=== PATIENT | male | born 1955 | race Caucasian/White ===

== ENCOUNTER 2019-03-12 09:36 | Inpatient (IN) ==
[2019-03-12 11:50] LABS: Basophils # 0.1 10*3/uL (0.0-0.2); Basophils % 0.8 % (0.0-0.8); Eosinophils % 0.6 % (0.00-10.9); Immature Granulocytes % 0.3 %; Immature Granulocytes Absolute 0.02 #; Lymphocytes # 2.5 10*3/uL (1.4-4.0); Lymphocytes % 34.9 % (21.2-54.2); Mean Corpuscular HGB Conc 32.6 GM/DL (32-36); Mean Platelet Volume 9.7 FL (9.6-12.0); Monocytes % 9.3 % (1.7-12.7); Neutrophils % 54.1 % (38.7-73.9); Platelet Count 252 T/CUMM (130-400); Red Blood Count 5.17 MC/CUMM (3.8-5.5); Red Cell Distribution Width 14.2 % (9.3-17.3); White Blood Count 7.1 T/CUMM (4-12)
[2019-03-12 12:00] LABS: INR 0.9; PT Patient Result 10.3 SECS (9.6-12.2); Partial Thromboplastin Time 27.8 SECS (20.8-36.0)
[2019-03-12 12:18] LABS: Amorphous Crystals,Urine Occasional /HPF (Few); Apearance,Urine CLEAR (Clear); Bilirubin,Urine Negative (Negative); Blood, Urine Negative (Negative); Glucose,Urine (UA) Negative (Negative); Ketones,Urine Negative (Negative); Mucus,Urine Occasional /LPF (Occasional); Nitrite,Urine Negative (Negative); Protein,Urine Negative; Urine Color Straw (Yellow); Urine Specific Gravity 1.003 (1.001-1.035); Urine Urobilinogen < 2.0 EU/DL (0.2-1.0)
[2019-03-12 12:20] LABS: Barbiturates Screen,Urine Negative (Negative); Benzodiazepines Screen,Urine Negative (Negative); Cannabinoid Screen,Urine Negative (Negative); Opiate Screen,Urine Negative (Negative); Phencyclidine Screen,Urine Negative (Negative)
[2019-03-12 12:28] LABS: Alanine Aminotransferase 24 U/L (16-61); Albumin 3.5 G/DL (3.4-5.0); Alkaline Phosphatase 101 U/L (45-117); Aspartate Amino Transferase 22 U/L (0-37); Blood Urea Nitrogen 12 MG/DL (7-18); Calcium 9.4 MG/DL (8.5-10.1); Glucose 94 MG/DL (74-106); Osmolality,Calculated 278.4 MOS/KG (273-304); Total Protein 7.8 G/DL (6.4-8.3); Troponin I < 0.015 NG/ML (0.00-0.045)
[2019-03-12] MEDS ORDERED: ACETAMINOPHEN 325 MG TABLET PO PRN (13:54)
[2019-03-12] MEDS ORDERED: ENOXAPARIN 40 MG/0.4 ML SYRINGE SUBCUT SCH (14:00)
[2019-03-12 16:38] LABS: Risk Ratio 8.79; Thyroid Stimulating Hormone 0.701 uIU/ml (0.358-3.74); VLDL CHOLESTEROL 47.6 MG/DL
[2019-03-12] MEDS: NICOTINE 21 MG/24 HR PATCH TRANSDERM PRN (17:31)
[2019-03-12] MEDS: ASPIRIN CHEW 81 MG TABLET PO SCH (17:31)
[2019-03-12] MEDS: ENOXAPARIN 40 MG/0.4 ML SYRINGE SUBCUT SCH (21:02)
[2019-03-12] MEDS: ATORVASTATIN 80 MG TABLET PO SCH (21:03)
[2019-03-13 05:38] LABS: Basophils # 0.1 10*3/uL (0.0-0.2); Eosinophils # 0.2 10*3/uL (0.0-0.87); Eosinophils % 2.9 % (0.00-10.9); Hematocrit 43.6 VOL% (42.0-52.0); Hemoglobin 14.5 GM/DL (14.0-18.0); Immature Granulocytes % 0.2 %; Immature Granulocytes Absolute 0.01 #; Lymphocytes # 2.7 10*3/uL (1.4-4.0); Lymphocytes % 42.3 % (21.2-54.2); Mean Corpuscular HGB Conc 33.3 GM/DL (32-36); Mean Corpuscular Volume 87.9 FL (87-102); Mean Platelet Volume 10.4 FL (9.6-12.0); Monocytes % 9.9 % (1.7-12.7); Neutrophils % 43.7 % (38.7-73.9); Platelet Count 245 T/CUMM (130-400); Red Blood Count 4.96 MC/CUMM (3.8-5.5); Red Cell Distribution Width 13.9 % (9.3-17.3); White Blood Count 6.3 T/CUMM (4-12)
[2019-03-13 06:11] LABS: Albumin 3.2 G/DL (3.4-5.0); Bilirubin,Total 0.6 MG/DL (0.2-1.0); Calcium 9.2 MG/DL (8.5-10.1); Osmolality,Calculated 277.5 MOS/KG (273-304); Total Protein 7.2 G/DL (6.4-8.3)
[2019-03-13 06:19] LABS: Risk Ratio 9.33; VLDL CHOLESTEROL 64.6 MG/DL
[2019-03-13] MEDS: ASPIRIN CHEW 81 MG TABLET PO SCH (09:09)
[2019-03-13] MEDS: PANTOPRAZOLE 40 MG TABLET PO SCH (09:09)
[2019-03-13] MEDS: NICOTINE 21 MG/24 HR PATCH TRANSDERM PRN (09:10)
[2019-03-13] MEDS: amLODIPine 2.5 MG TABLET PO SCH (21:11)
[2019-03-13] MEDS: ATORVASTATIN 80 MG TABLET PO SCH (21:11)
[2019-03-13] MEDS: ENOXAPARIN 40 MG/0.4 ML SYRINGE SUBCUT SCH (21:20)
[2019-03-14 04:55] LABS: Basophils # 0.1 10*3/uL (0.0-0.2); Basophils % 0.9 % (0.0-0.8); Eosinophils # 0.2 10*3/uL (0.0-0.87); Eosinophils % 2.5 % (0.00-10.9); Hematocrit 45.1 VOL% (42.0-52.0); Hemoglobin 14.7 GM/DL (14.0-18.0); Immature Granulocytes % 0.9 %; Immature Granulocytes Absolute 0.06 #; Lymphocytes # 2.7 10*3/uL (1.4-4.0); Lymphocytes % 38.7 % (21.2-54.2); Mean Corpuscular HGB Conc 32.6 GM/DL (32-36); Mean Corpuscular Volume 88.4 FL (87-102); Mean Platelet Volume 10.1 FL (9.6-12.0); Monocytes % 10.7 % (1.7-12.7); Neutrophils % 46.3 % (38.7-73.9); Platelet Count 237 T/CUMM (130-400); Red Cell Distribution Width 13.7 % (9.3-17.3); White Blood Count 6.9 T/CUMM (4-12)
[2019-03-14 05:35] LABS: Osmolality,Calculated 276.5 MOS/KG (273-304)
[2019-03-14] MEDS: PANTOPRAZOLE 40 MG TABLET PO SCH (10:18)
[2019-03-14] MEDS: LORATADINE 10 MG TABLET PO SCH (10:18)
[2019-03-14] MEDS: ASPIRIN CHEW 81 MG TABLET PO SCH (10:18)
[2019-03-14] MEDS: NICOTINE 21 MG/24 HR PATCH TRANSDERM PRN (10:24)
[2019-03-14] MEDS: ATORVASTATIN 80 MG TABLET PO SCH (21:48)
[2019-03-14] MEDS: amLODIPine 2.5 MG TABLET PO SCH (21:48)
[2019-03-14] MEDS: ENOXAPARIN 40 MG/0.4 ML SYRINGE SUBCUT SCH (21:51)
[2019-03-15 05:37] LABS: Basophils # 0.1 10*3/uL (0.0-0.2); Basophils % 1.2 % (0.0-0.8); Eosinophils # 0.2 10*3/uL (0.0-0.87); Eosinophils % 2.6 % (0.00-10.9); Hematocrit 44.1 VOL% (42.0-52.0); Hemoglobin 14.9 GM/DL (14.0-18.0); Immature Granulocytes % 0.3 %; Immature Granulocytes Absolute 0.02 #; Lymphocytes # 3.2 10*3/uL (1.4-4.0); Lymphocytes % 49.2 % (21.2-54.2); Mean Corpuscular HGB Conc 33.8 GM/DL (32-36); Mean Corpuscular Volume 88.4 FL (87-102); Mean Platelet Volume 10.2 FL (9.6-12.0); Monocytes % 10.2 % (1.7-12.7); Neutrophils % 36.5 % (38.7-73.9); Platelet Count 232 T/CUMM (130-400); Red Blood Count 4.99 MC/CUMM (3.8-5.5); Red Cell Distribution Width 13.8 % (9.3-17.3); White Blood Count 6.5 T/CUMM (4-12)
[2019-03-15] MEDS ORDERED: FAMOTIDINE 20 MG TABLET PO ONE (06:00)
[2019-03-15 06:05] LABS: Eosinophils 1 % (0-10); Hypochromasia Slight; Lymphocytes 52 % (20-55); Metamyelocytes 1 %; Platelet Estimate Normal; Segmented Neutrophils 34 % (50-85); Total Cells Counted 100
[2019-03-15 06:06] LABS: Calcium 9.1 MG/DL (8.5-10.1); Osmolality,Calculated 282.1 MOS/KG (273-304)
[2019-03-15] MEDS ORDERED: LIDOCAINE 1% 20 ML VIAL ONE (07:40)
[2019-03-15] MEDS ORDERED: HEPARIN 5,000 UNIT/1 ML VIAL ONE (07:40)
[2019-03-15] MEDS ORDERED: ROPIVACAINE 0.5% 30 ML VIAL ONE (07:53)
[2019-03-15] MEDS ORDERED: DEXAMETHASONE 4 MG/1 ML VIAL ONE (07:53)
[2019-03-15] MEDS ORDERED: MIDAZOLAM 2 MG/2 ML VIAL ONE (07:54)
[2019-03-15] MEDS ORDERED: fentaNYL 100 MCG/2 ML VIAL ONE (07:54)
[2019-03-15] MEDS ORDERED: ceFAZolin 1,000 MG in SYRINGE 1 EACH IV ONE (08:00)
[2019-03-15] MEDS ORDERED: LACTATED RINGERS 1,000 ML IV SCH (09:00)
[2019-03-15] MEDS ORDERED: DEXTROSE 50% 25 GM/50 ML VIAL IV PRN (10:10)
[2019-03-15] MEDS ORDERED: oxyCODONE/ACETAMINOPHEN 5-325 MG TABLET PO PRN ×2 (10:10)
[2019-03-15] MEDS ORDERED: NALOXONE 0.4 MG/ML VIAL IV PRN (10:10)
[2019-03-15] MEDS ORDERED: ONDANSETRON 4 MG/2 ML VIAL IV PRN (10:10)
[2019-03-15] MEDS ORDERED: PROMETHAZINE 25 MG/1 ML VIAL IM PRN (10:10)
[2019-03-15] MEDS ORDERED: HYDROmorphone 2 MG/1 ML VIAL IV PRN ×2 (10:10)
[2019-03-15] MEDS ORDERED: GLUCAGON 1 MG VIAL IM PRN (10:10)
[2019-03-15] MEDS ORDERED: NITROPRUSSIDE 100 MG in DEXTROSE 5% 250 ML IV SCH (10:30)
[2019-03-15] MEDS ORDERED: PHENYLEPHRINE DRIP 40 MG/250 ML PREMIX IV SCH (10:30)
[2019-03-15] MEDS ORDERED: PROPOFOL 200 MG/20 ML VIAL IV ONE (10:32)
[2019-03-15] MEDS ORDERED: ETOMIDATE 40 MG/20 ML VIAL IV ONE (10:33)
[2019-03-15] MEDS ORDERED: ROCURONIUM 100 MG/10 ML VIAL IV ONE (10:33)
[2019-03-15] MEDS ORDERED: PHENYLEPHRINE DRIP 20 MG/250 ML PREMIX IV ONE (10:33)
[2019-03-15] MEDS ORDERED: NEOSTIGMINE 10 MG/10 ML VIAL ONE (10:33)
[2019-03-15] MEDS ORDERED: SEVOFLURANE 1 UNIT/15 MINUTE INH ONE (10:33)
[2019-03-15] MEDS ORDERED: PHENYLEPHRINE 1 MG/10 ML SYRINGE IV ONE (10:33)
[2019-03-15] MEDS ORDERED: SODIUM CHLORIDE 0.9% 1,000 ML IV ONE (10:33)
[2019-03-15] MEDS ORDERED: NITROGLYCERIN DRIP 50 MG/250 ML BOTTLE IV ONE (10:33)
[2019-03-15] MEDS ORDERED: GLYCOPYRROLATE 0.4 MG/2 ML VIAL ONE (10:33)
[2019-03-15] MEDS: LACTATED RINGERS 1,000 ML IV SCH (11:05)
[2019-03-15] MEDS: LORATADINE 10 MG TABLET PO SCH (12:07)
[2019-03-15] MEDS: ASPIRIN CHEW 81 MG TABLET PO SCH (12:08)
[2019-03-15] MEDS: PANTOPRAZOLE 40 MG TABLET PO SCH (12:08)
[2019-03-15] MEDS: amLODIPine 2.5 MG TABLET PO SCH (16:23)
[2019-03-15] MEDS: ATORVASTATIN 80 MG TABLET PO SCH (21:57)
[2019-03-16] MEDS: LACTATED RINGERS 1,000 ML IV SCH ×2 (02:45→13:36)
[2019-03-16 06:16] VITALS: BP 141/50
[2019-03-16] MEDS ORDERED: CLOPIDOGREL 75 MG TABLET PO SCH (09:00)
[2019-03-16] MEDS: ASPIRIN CHEW 81 MG TABLET PO SCH (10:00)
[2019-03-16] MEDS: PANTOPRAZOLE 40 MG TABLET PO SCH (10:00)
[2019-03-16] MEDS: amLODIPine 2.5 MG TABLET PO SCH (10:00)
[2019-03-16] MEDS: LORATADINE 10 MG TABLET PO SCH (10:01)
[2019-03-16] MEDS: NICOTINE 21 MG/24 HR PATCH TRANSDERM PRN (12:53)
== END 2019-03-16 14:08 | disposition home or self-care (01) | DRG 39 ==
LOC: N.EDINP 09:36 → N.ED 09:36 → SUPCPDRO 13:54 → SUATTDRO 13:54 → N.4E 15:16 → N.ICU 03-15 08:10
PROVIDERS: ADMIT Internal Medicine; ATTEND Internal Medicine